=== PATIENT | female | born 1985 | race Caucasian/White ===

== ENCOUNTER 2020-07-10 10:06 | Outpatient (REF) | payer OTHER, SELFPAY | END 2020-07-10 10:07 | disposition home or self-care (01) | LOC: HO.LAB 10:06 | PROVIDERS: Visit Provider Internal Medicine | DX: Z20.828 Contact with and (suspected) exposure to other viral communicable diseases (principal) | CPT/HCPCS: C9803; U0003 ==

== ENCOUNTER 2020-09-18 09:30 | Outpatient (REF) | payer OTHER, SELFPAY | END 2020-09-18 09:31 | disposition home or self-care (01) | LOC: HO.LAB 09:30 | PROVIDERS: Visit Provider Internal Medicine | DX: Z20.822 Contact with and (suspected) exposure to COVID-19 (principal) | CPT/HCPCS: 36415; C9803; U0003; U0005 ==

== ENCOUNTER 2020-09-27 13:05 | Outpatient (REF) | payer OTHER, SELFPAY | END 2020-09-27 13:06 | disposition home or self-care (01) | LOC: HO.LAB 13:05 | PROVIDERS: Visit Provider Internal Medicine | DX: Z20.822 Contact with and (suspected) exposure to COVID-19 (principal) | CPT/HCPCS: 36415; C9803; U0003; U0005 ==

== ENCOUNTER 2020-12-28 01:16 | Emergency (ER) | payer OTHER, SELFPAY ==
[2020-12-28 01:18] VITALS: BP 129/65; PULSE 98; RESP 16; O2SAT 100; BMI 19.3
--- NOTE | 2020-12-28 01:46 | ED_ITS ---
HPI - Back Pain/Injury General Chief Complaint: Back Pain/Injury Stated Complaint: Back pain/Work inj Time Seen by Provider: 12/28/20 01:36 Source: patient Mode of arrival: ambulatory Limitations: no limitations History of Present Illness HPI Narrative: Patient comes emergency room complaining of back pain. 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 Patient started feeling that her lower back was hurting, gradually getting slightly worse. Patient states it is bilateral in the lower back, no spine tenderness. Patient denies hurting herself. Patient took Advil and applied a salonpas patch to her back with no relief. Patient denies urinary/fecal incontinence/retention. Patient states the pain stays local, denies radiation towards the lower extremities. Related Data Previous Rx's Medication Instructions Recorded acetaminophen [Tylenol Arthritis 650 mg PO Q8H PRN #10 tab 12/28/20 Pain] cyclobenzaprine 10 mg PO TID PRN #10 tab 12/28/20 Allergies Allergy/AdvReac Type Severity Reaction Status Date / Time amoxicillin [Amoxicillin] Allergy Unknown RASH Unverified 12/28/20 01:23 Review of Systems Review of Systems: Constitutional : No Weight loss, No Fever, No Chills, No Night Sweats, No Fatigue, No Malaise ENT/Mouth : No Hearing loss, No Ear Pain, No Nasal Congestion, No Sinus Pain, No Hoarseness, No sore throat, No Rhinorrhea, No Swallowing Difficulty Eyes: No Eye Pain, No Swelling, No Redness, No Foreign Body, No Discharge, No Vision Changes Cardiovascular : No Chest Pain, No SOB, No Dyspnea on Exertion, No Orthopnea, No Edema, No Palpitations Respiratory : No Cough, No Sputum, No Wheezing, No Smoke Exposure, No Dyspnea Gastrointestinal : No Nausea, No Vomiting, No Diarrhea, No Constipation, No abdominal Pain, No Hematochezia, No Melena Genitourinary : no irregular bleeding, No Dysuria, No Urinary Frequency, No Hematuria, No Urinary Incontinence, No Urgency, No Flank Pain, No Urinary Flow Changes, No Hesitancy Musculoskeletal : No joint pain, complaining of lower bilateral back pain Skin : No Skin Lesions, No rash Neuro : No Weakness, No Numbness, No Paresthesias, No Loss of Consciousness, No Dizziness, No Headache Psych : No Anxiety/Panic, No Depression, No SI/HI/AH/VH, No Social Issues, Heme/Lymph: No Bruising, No Bleeding,No Lymphadenopathy Endocrine : No Polyuria, No Polydipsia, No Temperature Intolerance [facility] Past Medical History Medical History No known health problems Opiate addiction Social History Social History Advance Directives: No Advance Directives Information Provided: No Patient : No Physical Exam Vital Signs: Vital Signs: Last Vital Signs Pulse 98 12/28/20 01:18 Resp 16 12/28/20 01:18 BP 129/65 12/28/20 01:18 Pulse Ox 100 12/28/20 01:18 Body Mass Index 19.3 Appearance: Alert. Oriented X3. No acute distress. Eyes: Pupils equal, round and reactive to light. ENT: Pharynx normal. Neck: Normal inspection. Neck supple. No lymph nodes noted. No crepitus CVS: Normal heart rate and rhythm. Pulses normal. Normal S1 and S2 Respiratory: No respiratory distress. Breath sounds normal. No Wheezing. No rales Abdomen: Soft and nontender. No rigidity. No distention. Back: Patient is ambulatory at baseline, patient is able to flex and extend the back with normal range of motion. No pain to palpation over the cervical/thoracic/lumbar spine, mild discomfort to palpation over the paraspinal muscles. Negative straight leg raise test bilaterally Skin: Skin warm and dry. Normal skin color. Normal skin turgor. Extremities: No lower extremity edema. No lower extremity edema. No Lacerations. No Rash Neuro: Oriented X 3. No motor deficit. No sensory deficit. Moving all extermities. No slurred speech. Course Course Course Narrative: Patient's pain is likely musculoskeletal. Imaging is not indicated at this time. Patient received 1 dose of IM Toradol. Patient instructed not to use ibuprofen/NSAIDs, only Tylenol for breakthrough pain. Patient was also given a prescription for muscle relaxants. Discharge Plan Discharge Clinical Impression: Strain of lumbar region Qualifiers: Encounter type: initial encounter Qualified Code(s): S39.012A - Strain of muscle, fascia and tendon of lower back, initial encounter Patient Disposition: Home, Self-Care Instructions: Low Back Strain (ED), Lower Back Exercises (ED) Additional Instructions: Please follow-up with your primary care physician tomorrow. If you have any worsening or new symptoms, please return to the emergency room or call 911 Prescriptions: New cyclobenzaprine 10 mg tablet 10 mg PO TID PRN (Reason: muscle spasm) Qty: 10 RF: 0 acetaminophen [Tylenol Arthritis Pain] 650 mg tablet extended release 650 mg PO Q8H PRN (Reason: pain) Qty: 10 RF: 0 Stand Alone Forms: Work/School Release
[2020-12-28] MEDS: Ketorolac Tromethamine 60 MG/2 ML VIAL IM (01:55)
== END 2020-12-28 02:07 | disposition home or self-care (01) ==
PROVIDERS: Emergency Provider Emergency Medicine
DX: S39.012A Strain of muscle, fascia and tendon of lower back, initial encounter (principal); X50.3XXA Overexertion from repetitive movements, initial encounter; X50.1XXA Overexertion from prolonged static or awkward postures, initial encounter; Y93.9 Activity, unspecified; Y92.512 Supermarket, store or market as the place of occurrence of the external cause; Y99.0 Civilian activity done for income or pay; Z79.899 Other long term (current) drug therapy
CPT/HCPCS: 96372; 99283; 99284; J1885

== ENCOUNTER 2021-06-01 06:30 | Emergency (ER) | payer OTHER, SELFPAY ==
[2021-06-01 06:37] VITALS: BP 133/62; PULSE 97; RESP 16; TEMP 36.6; O2SAT 98; BMI 19.3
--- NOTE | 2021-06-01 06:47 | ED.DENTAL ---
HPI - Dental/Oral General Chief complaint: Dental/Oral Stated complaint: possible sinus infection Time Seen by Provider: 06/01/21 06:33 Source: patient Mode of arrival: ambulatory Limitations: no limitations History of Present Illness HPI Narrative: Patient's emergency room complaining of pain in her gums on the maxillary side left side. Patient denies fever chills, no tooth pain. Related Data Home Medications Medication Instructions Recorded Confirmed buprenorphine 8 mg-naloxone 2 mg 1 strip SUBLINGUAL DAILY 06/01/21 06/01/21 sublingual film (Suboxone) Previous Rx's Medication Instructions Recorded benzocaine 20 %-menthol 0.1 %-zinc 1 ea MUCOUS MEMBRANE TID PRN #5.1 g 06/01/21 chloride 0.15 % mucosal gel (Orajel 3X Mouth Sores) Allergies Allergy/AdvReac Type Severity Reaction Status Date / Time amoxicillin [Amoxicillin] Allergy Unknown RASH Verified 06/01/21 06:47 Review of Systems Review of Systems: Constitutional : No Weight loss, No Fever, No Chills, No Night Sweats, No Fatigue, No Malaise ENT/Mouth : No Hearing loss, No Ear Pain, No Nasal Congestion, No Sinus Pain, No Hoarseness, No sore throat, No Rhinorrhea, No Swallowing Difficulty small ulcer in the gum Eyes: No Eye Pain, No Swelling, No Redness, No Foreign Body, No Discharge, No Vision Changes Cardiovascular : No Chest Pain, No SOB, No Dyspnea on Exertion, No Orthopnea, No Edema, No Palpitations Respiratory : No Cough, No Sputum, No Wheezing, No Smoke Exposure, No Dyspnea Gastrointestinal : No Nausea, No Vomiting, No Diarrhea, No Constipation, No abdominal Pain, No Hematochezia, No Melena Genitourinary : no irregular bleeding, No Dysuria, No Urinary Frequency, No Hematuria, No Urinary Incontinence, No Urgency, No Flank Pain, No Urinary Flow Changes, No Hesitancy Musculoskeletal : No joint pain, No Myalgias, No Joint Swelling Skin : No Skin Lesions, No rash Neuro : No Weakness, No Numbness, No Paresthesias, No Loss of Consciousness, No Dizziness, No Headache Psych : No Anxiety/Panic, No Depression, No SI/HI/AH/VH, No Social Issues, Heme/Lymph: No Bruising, No Bleeding,No Lymphadenopathy Endocrine : No Polyuria, No Polydipsia, No Temperature Intolerance PMFSH Past Medical History Medical History No known health problems Opiate addiction Social History Social History Alcohol intake: unknown Patient Tobacco Use Status: Tobacco use Unknown Use of substances other than those prescribed or required for medical reasons: No Advance Directives: No Advance Directives Information Provided: Yes Patient : No Physical Exam Vital Signs: Vital Signs: Last Vital Signs Temp 97.9 F 06/01/21 06:37 Pulse 97 06/01/21 06:37 Resp 16 06/01/21 06:37 BP 133/62 06/01/21 06:37 Pulse Ox 98 06/01/21 06:37 Body Mass Index 19.3 Const: Other: Appearance: Alert. Oriented X3. No acute distress. Eyes: Pupils equal, round and reactive to light. ENT: Pharynx normal. 0.3 x 0.3 cm after this ulcer in the oral mucosa on the left maxillary side Neck: Normal inspection. Neck supple. No lymph nodes noted. No crepitus CVS: Normal heart rate and rhythm. Pulses normal. Normal S1 and S2 Respiratory: No respiratory distress. Breath sounds normal. No Wheezing. No rales Abdomen: Soft and nontender. No rigidity. No distention. good BS x4 Skin: Skin warm and dry. Normal skin color. Normal skin turgor. Extremities: No lower extremity edema. No lower extremity edema. No Lacerations. No Rash Neuro: Oriented X 3. No motor deficit. No sensory deficit. Moving all extermities. No slurred speech. Course Course Course Narrative: I discussed the physical exam with the patient, she does not have any signs of sinusitis, patient does have an aphthous ulcer Discharge Plan Discharge Clinical Impression: Aphthous ulcer Patient Disposition: Home, Self-Care Instructions: Canker Sores (ED) Additional Instructions: Please follow-up with your primary care physician tomorrow. If you have any worsening or new symptoms, please return to the emergency room or call 911 Prescriptions: New Orajel 3X Mouth Sores 20-0.1-0.15 % gel 1 ea mucous membrane TID PRN (Reason: pain) Qty: 5.1 RF: 0 No Action buprenorphine-naloxone [Suboxone] 8-2 mg film 1 strip sublingual DAILY RF: 0
[2021-06-01] MEDS: Lidocaine HCl Viscous 2 % 15 ML SOLUTION MUCOUS MEM (06:52)
== END 2021-06-01 07:05 | disposition home or self-care (01) ==
PROVIDERS: Emergency Provider Emergency Medicine
DX: K12.0 Recurrent oral aphthae (principal)
CPT/HCPCS: 99284

== ENCOUNTER 2021-09-11 22:50 | Emergency (ER) | payer OTHER, SELFPAY ==
--- NOTE | ~2021-09-11 | XR_ITS ---
EXAMINATION: XR CHEST CLINICAL INFORMATION: Fatigue, question pneumonia COMPARISON: 05/26/2017 TECHNIQUE: Frontal view of the chest was obtained. FINDINGS: The lungs are clear with no focal consolidation. No evidence of pneumothorax, pulmonary edema, or pleural effusions. The cardiomediastinal silhouette is unremarkable. No acute osseous findings. XR/XR chest 1V IMPRESSION: No acute cardiopulmonary findings.
[2021-09-11 22:51] VITALS: BP 128/78; PULSE 84; RESP 18; TEMP 36.7; O2SAT 100; BMI 19.3
[2021-09-11 23:03] LABS: MANUAL DIFF FLAG NO
[2021-09-11 23:04] LABS: Basophils Percent Auto 0.2 % (0-2); Eosinophils Absolute Auto 0.1 X10*3/uL (0.0-0.4); Eosinophils Percent Auto 1.5 % (0-4); Hematocrit 35.7 % (37.0-47.0); Hemoglobin 11.9 g/dl (12.0-16.0); Imm Gran Abs Auto 0.01 X10*3/uL (0.00-0.03); Imm Gran Pct Auto 0.2 % (0.0-0.4); Lymphocytes Absolute Auto 1.8 X10*3/uL (1.2-4.9); Lymphocytes Percent Auto 38.1 % (20-40); Mean Corpuscular HGB Conc 33.3 g/dl (31.0-35.0); Mean Corpuscular Hemoglobin 34.9 pg (27.0-33.0); Mean Corpuscular Volume 104.7 fL (80.0-98.0); Mean Platelet Volume 8.6 fL (9.4-12.3); Monocytes Absolute Auto 0.3 X10*3/uL (0.1-1.2); Neutrophils Absolute Auto 2.4 x10*3/uL (2.0-8.3); Platelet Count 239 X10*3/uL (160-400); Red Blood Count 3.41 X10*6/uL (4.20-5.50); Red Cell Distribution Width 12.1 % (11.0-16.0); White Blood Count 4.6 X10*3/uL (4.8-10.8)
[2021-09-11 23:20] LABS: Anion Gap 10 (12-20); Blood Urea Nitrogen 13 mg/dL (9-16); Calcium 9.2 mg/dL (8.4-10.2); Carbon Dioxide 26 mmol/L (22-29); Chloride 108 mmol/L (96-108); Creatinine Clr Calc Pharmacy 69.8; Estimated Glomerular Filt Rate > 60; Glucose Random 100 mg/dL (60-115); Potassium 3.8 mmol/L (3.3-5.1); Sodium 140 mmol/L (135-145)
[2021-09-11 23:20] LABS: COVID-19 Test Negative (Negative)
--- NOTE | 2021-09-12 00:37 | ECG_ITS ---
Test Reason : dizziness Blood Pressure : / mmHG Vent. Rate : 074 BPM Atrial Rate : 074 BPM P-R Int : 130 ms QRS Dur : 082 ms QT Int : 392 ms P-R-T Axes : 075 084 067 degrees QTc Int : 435 ms Normal sinus rhythm Nonspecific ST abnormality Abnormal ECG No previous ECGs available Referred By: Redd Nixon Electronically Signed By:Robby Stewart
[2021-09-12 00:41] LABS: Appearance Urine CLEAR; Color Urine YELLOW; Glucose Urine UA NEG (NEG); Leukocyte Esterase Urine NEG (NEG); Nitrite Urine NEG (NEG); Specific Gravity - Urine >= 1.030 (1.005-1.025); Urine Blood NEG (NEG); Urine Ketones NEG (NEG); Urine Protein NEG (NEG-TRACE)
--- NOTE | 2021-09-12 00:41 | ED_ITS ---
HPI - General Adult General Chief complaint: Dizziness Stated complaint: dizziness, sleeps a lot Time Seen by Provider: 09/12/21 00:12 Source: patient Mode of arrival: ambulatory Limitations: no limitations History of Present Illness HPI narrative: 35 yold female presents to the ED for lethargy and fatigue for one week. patiient states to tired to go to work and she has been sleeping longer than usual. patient denies any sensation of the room spinning, nausea, emesis, fever, chills, abdominal pain, chest pain, shortness of breath, URI symptoms or complaints. patient states she is not sexually active. Patient denies any new diet, drug use, headache, slurred speech, facial droop, paralysis of extremities. patient denies any suicidal/homicidal ideaiton. Related Data Home Medications Medication Instructions Recorded Confirmed buprenorphine 8 mg-naloxone 2 mg 1 strip SUBLINGUAL DAILY 06/01/21 06/01/21 sublingual film (Suboxone) Previous Rx's Medication Instructions Recorded benzocaine 20 %-menthol 0.1 %-zinc 1 ea MUCOUS MEMBRANE TID PRN #5.1 g 06/01/21 chloride 0.15 % mucosal gel (Orajel 3X Mouth Sores) Allergies Allergy/AdvReac Type Severity Reaction Status Date / Time amoxicillin [Amoxicillin] Allergy Unknown RASH Verified 09/11/21 22:51 Review of Systems Review of Systems: fatigue, sleepiness Yes all other systems are reviewed and are negative Neurologic: Reports Abnormal speech present [facility] Past Medical History Medical History No known health problems Opiate addiction Social History Social History Alcohol intake: unknown Patient Tobacco Use Status: Tobacco use Unknown Advance Directives: No Patient : No Physical Exam Vital Signs: Vital Signs: Last Vital Signs Temp 98.1 F 09/11/21 22:51 Pulse 84 09/11/21 22:51 Resp 18 09/11/21 22:51 BP 128/78 09/11/21 22:51 Pulse Ox 100 09/11/21 22:51 BMI result Body Mass Index 19.3 Const: General: cooperative, healthy appearing, comfortable, no acute distress, well developed, alert and awake Orientation/consciousness: patient oriented x3 HENMT: Head: Yes normal to inspection, Yes No palpable skull fracture present, Yes normocephalic, Yes atraumatic and No abrasion Ears: hearing grossly normal bilaterally, external ears normal, TM's normal bilaterally, EAC's normal, mastoids normal and no periauricular adenopathy Throat: Yes posterior oropharynx normal, Yes tonsils normal and Yes uvula midline Eyes: General: appearance normal, both eyes and all related structures Pupils: Equal, round and reactive pupils present Neck: Neck: Yes normal visual inspection, Yes full ROM, Yes no lymphadenopathy, Yes no meningeal signs, Yes trachea midline, Yes supple, No ant erior neck swelling and No tender Chest: Chest palpation & inspection: normal inspection of the chest and normal palpation of entire chest wall Resp: Effort & Inspection: normal respiratory effort and able to speak in complete sentences Auscultation: clear to auscultation bilaterally Cardio: Jugular venous distension: no JVD Heart sounds: S1 normal heart sound present and S2 normal heart sound present GI: Inspection: Yes normal to inspection Palpation (GI): Soft to palpation, not firm, nontender, no guarding and not rigid : General: No CVA tenderness and Yes no CVA tenderness Back/Spine/Pelvis: Back: no CVA tenderness, No CVA tenderness and No back tenderness Skin: General skin exam: no rashes or lesions noted and elasticity normal Neuro: General: patient oriented x3, gait normal, tone normal, moves all extremities, Normal light touch and pain sensation, no meningeal signs, no focal motor deficits, CN's II-XI intact bilaterally and normal sensation to monofilament Cranial nerves: Yes CN's II-XII intact bilaterally, Yes Facial sensation intact/muscles of mastication intact, Yes Intact sense of smell present, Yes Equal, round and reactive pupils present, Yes Normal accommodation reflex present, Yes Bilaterally intact EOM present, Yes Nystagmus not present, Yes Normal facial strength present, Yes Midline tongue present and Yes Normal gag reflex present Cognition (Neuro): normal cognition Speech: Abnormal speech present Gait exam (Neuro): Normal gait present Motor exam (neuro): 5/5 motor strength present throughout Extrem: General: Yes normal to inspection and Yes full ROM Psych: Appearance: grossly normal, well kempt and not disheveled Course Course Course Narrative: Patient had rapid medical screening done. Reevaluation(s) Reevaluation #1: Initial basic labs are normal. Patient states just feel sleepy/fatigue. Negative for any neuro deficit. no head CT indicdated. Patient states no headache or dizziness. Will add magnesium and creating kinase. EKG and troponin ordered. Chest xray ordered to look for pneumonia. Covid swab negative. Urine ordered check for UTI and BERNAL. Will sign out to TEGAN jaimes. Time: 00:49 Medical Decision Making MDM Narrative Medical decision making narrative: Fatigue Lab Data Result diagrams: 09/11/21 22:59 09/11/21 22:59 Labs: Lab Results 09/11/21 09/11/21 09/11/21 Range/Units 22:56 22:59 22:59 WBC 4.6 L (4.8-10.8) X10*3/uL RBC 3.41 L (4.20-5.50) X10*6/uL Hgb 11.9 L (12.0-16.0) g/dl Hct 35.7 L (37.0-47.0) % MCV 104.7 H (80.0-98.0) fL MCH 34.9 H (27.0-33.0) pg MCHC 33.3 (31.0-35.0) g/dl RDW 12.1 (11.0-16.0) % Plt Count 239 (160-400) X10*3/uL MPV 8.6 L (9.4-12.3) fL Immature Gran % (Auto) 0.2 (0.0-0.4) % Neut % (Auto) 53.0 (45-73) % Lymph % (Auto) 38.1 (20-40) % Taylor % (Auto) 7.0 (2-11) % Eos % (Auto) 1.5 (0-4) % Baso % (Auto) 0.2 (0-2) % Lymph # (Auto) 1.8 (1.2-4.9) X10*3/uL Taylor # (Auto) 0.3 (0.1-1.2) X10*3/uL Eos # (Auto) 0.1 (0.0-0.4) X10*3/uL Baso # (Auto) 0.0 (0.0-0.2) X10*3/uL Abs Immat Gran (auto) 0.01 (0.00-0.03) X10*3/uL Absolute Neuts (auto) 2.4 (2.0-8.3) x10*3/uL Absolute Nucleated RBC 0.000 (0.0-0.012) X10*3/uL Nucleated RBC % (auto) 0.0 (0.0-0.2) /100WBC Sodium 140 (135-145) mmol/L Potassium 3.8 (3.3-5.1) mmol/L Chloride 108 (96-108) mmol/L Carbon Dioxide 26 (22-29) mmol/L Anion Gap 10 L (12-20) BUN 13 (9-16) mg/dL Creatinine 0.76 (0.5-1.4) mg/dL Estim Creat Clear Calc 69.8 Estimated GFR > 60 Random Glucose 100 (60-115) mg/dL Calcium 9.2 (8.4-10.2) mg/dL COVID-19 (APRIL) Negative (Negative) COVID-19 Clin Com See Note Discharge Plan Discharge Clinical Impression: Fatigue Patient Disposition: Still a Patient Instructions: Fatigue (ED) Additional Instructions: Your medical evaluation came back normal. Return to the ED for worsening fatigue, chest pain, shortness of breath, slurred speech, facial droop, paralysis of extremities, dizziness described as room spinning, fever, chills, weakness, or any other concerning symptoms. Please follow up with PCP. Prescriptions: No Action buprenorphine-naloxone [Suboxone] 8-2 mg film 1 strip sublingual DAILY 0RF Orajel 3X Mouth Sores 20-0.1-0.15 % gel 1 ea mucous membrane TID PRN (Reason: pain) Qty: 5.1 0RF Rx Instructions: apply a small amount to affected area TID PRN pain Print Language: Mongolian
[2021-09-12 00:44] LABS: UPreg QC Valid YES; Urine Pregnancy NEGATIVE (NEGATIVE)
[2021-09-12 01:10] LABS: Amphetamine Screen Urine Not Detected (Not Detect); Barbiturates, Urine Not Detected (Not Detect); Benzodiazepines Screen Urine Not Detected (Not Detect); Cannabinoid Screen Urine Not Detected (Not Detect); Cocaine Screen Urine Not Detected (Not Detect); Fentanyl, urine Not Detected (Not Detect); Opiate Screen Urine Not Detected (Not Detect); Phencyclidine Screen Urine Not Detected (Not Detect)
[2021-09-12 01:28] VITALS: BP 94/65; PULSE 73
[2021-09-12 01:29] VITALS: BP 113/66; PULSE 80
[2021-09-12 01:31] VITALS: BP 113/75; PULSE 82
[2021-09-12 01:36] LABS: Troponin-I High Sensitivity < 3.5 ng/L (<3.5-17.0)
== END 2021-09-12 01:54 | disposition home or self-care (01) ==
PROVIDERS: Physician Assistant; Emergency Provider Internal Medicine
DX: R53.83 Other fatigue (principal); Z20.822 Contact with and (suspected) exposure to COVID-19; F11.20 Opioid dependence, uncomplicated
CPT/HCPCS: 36415; 71045; 80048; 80307; 81003; 81025; 82550; 83735; 84484; 85025; 87635; 93005; 99284

== ENCOUNTER 2021-12-08 09:21 | Emergency (ER) | payer OTHER, SELFPAY ==
[2021-12-08 09:29] VITALS: BP 115/75; PULSE 93; RESP 16; TEMP 36.7; O2SAT 100; BMI 19.3
--- NOTE | 2021-12-08 09:42 | ED.WOUNDLAC ---
HPI - Wound/Laceration General Chief Complaint: Wound/Laceration Stated Complaint: laceration on R hand Time Seen by Provider: 12/08/21 09:42 Source: patient Mode of arrival: ambulatory Limitations: no limitations History of Present Illness HPI narrative: Patient presents to the emergency department for a laceration to her right thumb sustained from metal kitchen tongs, while washing dishes. She wrecked her hand in a towel and presented to the emergency department. Denies any pain, numbness, tingling, or loss of range of motion to the thumb. Unaware of last tetanus vaccine Related Data Home Medications Medication Instructions Recorded Confirmed buprenorphine 8 mg-naloxone 2 mg 1 strip SUBLINGUAL DAILY 06/01/21 06/01/21 sublingual film (Suboxone) Previous Rx's Medication Instructions Recorded benzocaine 20 %-menthol 0.1 %-zinc 1 ea MUCOUS MEMBRANE TID PRN #5.1 g 06/01/21 chloride 0.15 % mucosal gel (Orajel 3X Mouth Sores) Allergies Allergy/AdvReac Type Severity Reaction Status Date / Time amoxicillin [Amoxicillin] Allergy Unknown RASH Verified 09/11/21 22:51 Review of Systems Review of Systems: Skin: Positive laceration Yes all other systems are reviewed and are negative PMFSH Past Medical History Attestation statement: The following information was validated with the patient. Source: old records reviewed Medical History No known health problems Opiate addiction Social History Social History Alcohol intake: unknown Patient Tobacco Use Status: Tobacco use Unknown Advance Directives: No Advance Directives Information Provided: No Patient : No Physical Exam Vital Signs: Vital Signs: Last Vital Signs Temp 98.1 F 12/08/21 09:29 Pulse 93 12/08/21 09:29 Resp 16 12/08/21 09:29 BP 115/75 12/08/21 09:29 Pulse Ox 100 12/08/21 09:29 BMI result Body Mass Index 19.3 Vital signs have been reviewed as normal and appeared to be correct. Blood pressure normal.? Heart rate normal.? Respiration rate normal. Temperature normal.? Oxygen saturation normal. Appearance: Alert.?Oriented to person, place and time. No acute distress.?Normal affect. Eyes: Pupils equal, round and reactive to light.? ENT: Pharynx normal.?? Neck: Normal inspection.? Neck supple.?? CVS: Heart sounds normal. Normal heart rate and rhythm.? Pulses normal.?? Respiratory: No respiratory distress.? Lung sounds clear to auscultation bilaterally?? Abdomen: Soft and non-tender. Skin: 2 cm superficial laceration along the ulnar aspect of the right thumb, no active bleeding. Skin warm and dry.? Normal skin color.? ?? Extremities: Full AROM to right hand and digits. Neurovascularly intact. Neuro: Moves all extremities spontaneously. Sensation intact bilaterally. No motor deficits. Ambulates with normal steady gait. Course Course Course Narrative: Patient is a 36-year-old female presenting for evaluation of a laceration to her thumb. Physical exam not consistent with fracture, dislocation, or tendon involvement. Laceration cleansed with normal saline, edges well approximated, wound closure with Exofin topical skin adhesive, tetanus updated. Advised avoidance of touching the adhesive for 24 hours, keeping the area dry for 5 days. Discussed reasons to return back to the emergency department. All questions were answered and she was discharged home in stable condition. Discharge Plan Discharge Clinical Impression: Laceration Patient Disposition: Home, Self-Care Instructions: Finger Laceration (ED) Additional Instructions: Avoid touching the glue for 24 hours. Keep the area dry for 5 days. Return to the emergency department with any new symptoms or concerns. If you developed redness, swelling, drainage, inability to move your thumb, numbness, tingling please return back to the emergency department. Prescriptions: No Action buprenorphine-naloxone [Suboxone] 8-2 mg film 1 strip sublingual DAILY 0RF Orajel 3X Mouth Sores 20-0.1-0.15 % gel 1 ea mucous membrane TID PRN (Reason: pain) Qty: 5.1 0RF Rx Instructions: apply a small amount to affected area TID PRN pain Stand Alone Forms: Work/School Release Interventions: ED Discharge Assessment Last Done: 12/08/21 10:00 Discharge Date/Time: 12/08/21 10:00
[2021-12-08] MEDS: Diphth,Pertus(ACell),Tet Adult 0.5 ML SYRINGE IM (09:49)
== END 2021-12-08 10:00 | disposition home or self-care (01) ==
PROVIDERS: Emergency Provider Emergency Medicine Emergency Medical Services
DX: S61.011A Laceration without foreign body of right thumb without damage to nail, initial encounter (principal); W26.9XXA Contact with unspecified sharp object(s), initial encounter; Y93.G1 Activity, food preparation and clean up; Y92.9 Unspecified place or not applicable; Y99.9 Unspecified external cause status
CPT/HCPCS: 12001; 90471; 90715; 99283; 99284

== ENCOUNTER 2022-12-30 03:48 | Emergency (ER) | payer OTHER, SELFPAY ==
[2022-12-30 04:06] VITALS: BP 115/79; PULSE 83; RESP 16; TEMP 36.8; O2SAT 94
[2022-12-30 04:16] VITALS: BP 115/79; PULSE 83; RESP 16; TEMP 36.8; O2SAT 94; BMI 20.2
--- NOTE | 2022-12-30 04:24 | ED_ITS ---
HPI - Female Genitourinary General Chief complaint: Urogenital-Female Stated complaint: UTI Time Seen by Provider: 12/30/22 04:11 Source: patient Mode of arrival: ambulatory History of Present Illness HPI Narrative: 37-year-old female who states that she has been very busy in his been finding a urinary tract infection for 2 months but taking [id number] cranberry pills. Patient states that she is having significant suprapubic pain but denies any fever, chills, nausea Related Data Home Medications Medication Instructions Recorded Confirmed buprenorphine 8 mg-naloxone 2 mg 1 strip sublingual DAILY 06/01/21 06/01/21 sublingual film (Suboxone) Previous Rx's Medication Instructions Recorded benzocaine 20 %-menthol 0.1 %-zinc 1 ea mucous membrane TID PRN pain 06/01/21 chloride 0.15 % mucosal gel #5.1 grams (Orajel 3X Mouth Sores) nitrofurantoin 100 mg PO Q12H 5 days #10 caps 12/30/22 monohydrate/macrocrystals 100 mg capsule (Macrobid) phenazopyridine 200 mg tablet 200 mg PO TID PRN pain 6 doses #6 12/30/22 (Pyridium) tabs Allergies Allergy/AdvReac Type Severity Reaction Status Date / Time amoxicillin [Amoxicillin] Allergy Unknown RASH Verified 09/11/21 22:51 Review of Systems Review of Systems: Pertinent positives and negatives as stated in HPI [facility] Past Medical History Source: nursing notes reviewed Medical History No known health problems Opiate addiction Social History Social History Alcohol intake: unknown Patient Tobacco Use Status: Tobacco use Unknown Advance Directives: No Advance Directives Information Provided: No Physical Exam Vital Signs: Vital Signs: Last Vital Signs Temp 98.2 F 12/30/22 04:16 Pulse 83 12/30/22 04:16 Resp 16 12/30/22 04:16 BP 115/79 12/30/22 04:16 Pulse Ox 94 12/30/22 04:16 O2 Del Method Room Air 12/30/22 04:16 BMI result Body Mass Index 20.2 VITAL SIGNS: Reviewed. GENERAL: Well developed, well nourished, in no acute distress. HEAD: Normocephalic/atraumatic EYES: PERRLA, EOMI EARS: Ext canals without abnormality NOSE: Nares patent bilateral OROPHARYNX: no oral lesions noted, posterior pharynx clear NECK: Supple, no adenopathy LUNGS: Normal breath sounds. No adventitious sounds or accessory muscle use. SpO2<94> CARDIOVASCULAR: Regular rate and rhythm without noted murmurs ABDOMEN: Soft, non-tender, non-distended with bowel sounds. MUSCULOSKELETAL: No tenderness, deformities, or effusions noted on gross inspection. EXTREMITIES: No cyanosis, clubbing or edema. SKIN: Inspection of the skin reveals no rashes NEUROLOGIC: Alert and oriented x 4. Strength and sensation to light touch were grossly intact x 4. Medical Decision Making Medical Decision Making MDM Narrative: 37-year-old female with history and clinical presentation consistent with UTI, review investigations corroborates this with positive nitrites, will receive peridium and Macrobid prior to discharge. Differential Diagnosis Please see discussion above Lab Data Labs: Lab Results 12/30/22 12/30/22 Range/Units 04:22 04:22 Urine Color [place] A Urine Appearance Cloudy Urine pH 5.0 (5.0-9.0) Ur Specific [place] >= 1.030 H (1.005-1.025) Urine Protein Trace (Neg-Trace) mg/dL Urine Glucose (UA) Negative (Negative) mg/dL Urine Ketones Negative (Negative) mg/dL Urine Blood Negative (Negative) Urine Nitrite Positive H (Negative) Ur Leukocyte Esterase Moderate (2+) H (Negative) Urine Test NEGATIVE (NEGATIVE) Discharge Plan Discharge Clinical Impression: Urinary tract infection Patient Disposition: Home, Self-Care Instructions: Urinary Tract Infection in Women (DC) Additional Instructions: 1. Please complete the entire course of antibiotics as ordered. Return to the ER for any worsening symptoms. Prescriptions: New nitrofurantoin monohyd/m-cryst [Macrobid] 100 mg capsule 100 mg PO Q12H 5 Days Qty: 10 0RF Rx Instructions: must administer with a meal/food phenazopyridine [Pyridium] 200 mg tablet 200 mg PO TID PRN (Reason: pain) Qty: 6 0RF No Action buprenorphine-naloxone [Suboxone] 8-2 mg film 1 strip sublingual DAILY Orajel 3X Mouth Sores 20-0.1-0.15 % gel 1 ea mucous membrane TID PRN (Reason: pain) Qty: 5.1 0RF Rx Instructions: apply a small amount to affected area TID PRN pain
[2022-12-30 04:29] LABS: Appearance Urine Cloudy; Color Urine Orange; Glucose Urine UA Negative (Negative); Leukocyte Esterase Urine Moderate (2+) (Negative); Nitrite Urine Positive (Negative); Specific Gravity - Urine >= 1.030 (1.005-1.025); UMIC TRIGGER UACC YES; Urine Blood Negative (Negative); Urine Ketones Negative (Negative); Urine Protein Trace mg/dL (Neg-Trace)
[2022-12-30 04:30] LABS: UPreg QC Valid YES; Urine Pregnancy NEGATIVE (NEGATIVE)
[2022-12-30 04:33] LABS: Bacteria Urine 1+ (None Seen); Hyaline Casts Urine 0-2 /LPF (0-2); RBC Urine 0-2 /HPF (0-2); UACC Culture Trigger YES
[2022-12-30] MEDS: Nitrofurantoin Monohyd/M-Cryst 100 MG CAPSULE PO (04:40)
[2022-12-30] MEDS: Phenazopyridine HCL 200 MG TABLET PO (04:40)
--- NOTE | 2022-12-30 04:42 | PC.NURSE ---
this rn assumed care direct bed of pt @ [id number]. pt calm and coopertive. pt able to provided urine sample. sample sent down to lab.
--- NOTE | 2022-12-30 04:43 | PC.NURSE ---
pt medicated according to oct. pt reporting 4/10 pain at this time
--- NOTE | 2022-12-30 04:51 | PC.NURSE ---
pt ambulatory at discharge. skin pwd. pt provided with discharge packet. pt verbalized understanding of discharge plan
== END 2022-12-30 04:52 | disposition home or self-care (01) ==
PROVIDERS: Emergency Provider Student in an Organized Health Care Education/Training Program
DX: N39.0 Urinary tract infection, site not specified (principal); Z79.899 Other long term (current) drug therapy
CPT/HCPCS: 81001; 81025; 87086; 87088; 87186; 99283; 99284

== ENCOUNTER 2023-04-01 10:30 | Emergency (ER) | payer OTHER, SELFPAY ==
--- NOTE | ~2023-04-01 | XR_ITS ---
EXAMINATION: XR WRIST AND HAND, RIGHT CLINICAL INFORMATION: Fall. Pain. COMPARISON: None available. TECHNIQUE: PA, oblique, lateral, and scaphoid views of the right hand and wrist. FINDINGS: No acute fracture or dislocation. Normal carpal alignment. No joint space narrowing marginal osteophytes. No osseous erosion. No abnormal soft tissue calcification. XR/XR hand wrist RT IMPRESSION: Unremarkable examination.
[2023-04-01 10:40] VITALS: BP 106/66; PULSE 88; RESP 16; TEMP 37.4; O2SAT 98; BMI 23.9
--- NOTE | 2023-04-01 13:05 | ED_ITS ---
HPI - General Adult General Chief complaint: Extremity Injury, Lower Stated complaint: R wrist inj Time Seen by Provider: 04/01/23 11:43 Source: patient, family and RN notes reviewed Mode of arrival: ambulatory Limitations: no limitations History of Present Illness HPI narrative: This is a 37-year-old female, with no known past medical history, presenting to the emergency department with complaints of right wrist pain x 2 weeks. Patient reports that while she was decorating for Halloween, she was standing on a metal stool when suddenly the stool wobbled causing her to fall backwards landing with her arms stretched backwards behind her. She immediately had pain in her right wrist. She has been icing the area as well as applying an [place] wrap and taking ibuprofen and Tylenol as needed for pain was provided her with some relief. She denies any numbness or tingling into her fingers she is right handed. Denies any fevers or chills. No other complaints or concerns at this time. MD complaint: Right wrist pain Onset (ago): week(s) Location: upper extremity Radiation: non-radiation Severity: mild Quality: aching Pain Consistency: constant Relieving factors: immobilization Exacerbating factors: movement Associated symptoms: denies other symptoms Treatments prior to arrival: NSAID and cold therapy Related Data Home Medications Medication Instructions Recorded Confirmed buprenorphine 8 mg-naloxone 2 mg 1 strip sublingual DAILY 06/01/21 06/01/21 sublingual film (Suboxone) Previous Rx's Medication Instructions Recorded benzocaine 20 %-menthol 0.1 %-zinc 1 ea mucous membrane TID PRN pain 06/01/21 chloride 0.15 % mucosal gel #5.1 grams (Orajel 3X Mouth Sores) nitrofurantoin 100 mg PO Q12H 5 days #10 caps 12/30/22 monohydrate/macrocrystals 100 mg capsule (Macrobid) phenazopyridine 200 mg tablet 200 mg PO TID PRN pain 6 doses #6 12/30/22 (Pyridium) tabs Allergies Allergy/AdvReac Type Severity Reaction Status Date / Time amoxicillin [Amoxicillin] Allergy Unknown RASH Verified 09/11/21 22:51 Review of Systems Review of Systems: Yes all other systems are reviewed and are negative Constitutional: Constitutional: Reports as per HPI [facility] Past Medical History Medical History No known health problems Opiate addiction Social History Social History Alcohol intake: unknown Patient Tobacco Use Status: Tobacco use Unknown Advance Directives: No Advance Directives Information Provided: Yes Physical Exam ED Vital Signs: Vital Signs - 24 hr 04/01/23 10:40 Temperature 99.3 F Pulse Rate 88 Respiratory Rate 16 Blood Pressure 106/66 Pulse Oximetry 98 Oxygen Delivery Method Room Air BMI result Body Mass Index 23.9 Const General: cooperative, comfortable and no acute distress Orientation/consciousness: patient oriented x3 Limitations: no limitations HENMT Head: Yes normal to inspection, Yes normocephalic and Yes atraumatic Ears: hearing grossly normal bilaterally General nose exam: Normal external nose present Face and sinus: Yes normal facial exam Mouth: Normal oral and palatal mucosa present, oropharynx normal and moist mucous membranes Throat: Yes posterior oropharynx normal Eyes General: appearance normal, both eyes and all related structures Eyelids: Yes eyelids normal Conjunctivae: conjunctivae normal Sclerae: sclerae normal Pupils: Equal, round and reactive pupils present EOM: EOMs intact bilaterally Neck Neck: Yes normal visual inspection, Yes full ROM and Yes no lymphadenopathy Lymphatic: no lymphadenopathy noted Chest Chest palpation & inspection: normal inspection of the chest Resp Effort & Inspection: normal respiratory effort and able to speak in complete sentences Auscultation: clear to auscultation bilaterally, no crackles, no rales, no rhonchi and no wheezes Cardio Rate: regular rate Rhythm: regular rhythm Heart sounds: S1 normal heart sound present and S2 normal heart sound present GI Inspection: Yes normal to inspection Skin General skin exam: no rashes or lesions noted Trauma: no lacerations or abrasions Wounds: no wounds Neuro General: patient oriented x3 and moves all extremities Cranial nerves: Yes Equal, round and reactive pupils present Extrem Other: Right wrist with no obvious deformity or swelling. Able to make a fist without difficulty. Range of motion is full and intact. Patient has tenderness palpation along the distal radius. No snuffbox tenderness noted. No ecchymosis, or erythema noted. Strong radial pulse General: Yes normal to inspection Right upper extremity: normal to inspection Left upper extremity: normal to inspection Right lower extremity: normal to inspection Left lower extremity: normal to inspection Medical Decision Making Medical Decision Making MDM Narrative: This is a 37-year-old female presenting to the emergency department with complaints of right wrist pain x2 weeks. She reports mechanical fall landing onto her outstretched right hand. On arrival, all vital signs within normal limits. Patient has tenderness to palpation along the right distal radius. Differential diagnoses include fracture, sprain, strain, contusion Able to make a fist. Hand is nontender. Patient has no soft box tenderness. X-ray was obtained of the hand and wrist which had no acute fracture noted. Discussed results with patient and boyfriend at bedside. Advised to rest, ice, use wrist splint applied in emergency room, and elevate right wrist as needed. Encouraged to take ibuprofen or Tylenol as needed for pain. Given patient is right handed and reports worsening pain with using her hands, will refer to orthopedics for further evaluation and treatment. Patient understands and agrees with plan. Patient stable for discharge. Differential Diagnosis Differential Diagnoses: The differential diagnosis associated with the presentation includes See above Radiology Impression Discussion of test interpretation with radiology: I have reviewed the radiologist's reading. Radiologist Impression: EXAMINATION: XR WRIST AND HAND, RIGHT CLINICAL INFORMATION: Fall. Pain.? COMPARISON: None available.? TECHNIQUE: PA, oblique, lateral, and scaphoid views of the right hand and wrist. FINDINGS: No acute fracture or dislocation. Normal carpal alignment. No joint space narrowing marginal osteophytes. No osseous erosion. No abnormal soft tissue calcification. XR/XR hand wrist RT IMPRESSION: Unremarkable examination. Dictated By: Jorgito Figueroa MD Discharge Plan Discharge Clinical Impression: Wrist pain, right Patient Disposition: Home, Self-Care Instructions: Wrist Injury (ED) Additional Instructions: Your x-rays today did not show any broken bones. Please use splint for comfort. You may rest, ice, use wrist splint and elevate your right wrist for pain relief. Gentle range of motion and massage can also help. You may take ibuprofen and Tylenol as needed for your pain. Please follow-up with Orthopedics, call today to make an appointment. If any new or worsening symptoms occur including worsening pain, unable to move hand or wrist, or weakness, please return for re-evaluation. Prescriptions: No Action buprenorphine-naloxone [Suboxone] 8-2 mg film 1 strip sublingual DAILY Orajel 3X Mouth Sores 20-0.1-0.15 % gel 1 ea mucous membrane TID PRN (Reason: pain) Qty: 5.1 0RF Rx Instructions: apply a small amount to affected area TID PRN pain nitrofurantoin monohyd/m-cryst [Macrobid] 100 mg capsule 100 mg PO Q12H 5 Days Qty: 10 0RF Rx Instructions: must administer with a meal/food phenazopyridine [Pyridium] 200 mg tablet 200 mg PO TID PRN (Reason: pain) Qty: 6 0RF Referrals: [facility] [place] [facility] [Provider Group] Stand Alone Forms: Work/School Release
[2023-04-01 13:36] VITALS: BP 117/68; PULSE 86; RESP 18; O2SAT 98
== END 2023-04-01 13:43 | disposition home or self-care (01) ==
PROVIDERS: Emergency Provider Student in an Organized Health Care Education/Training Program
DX: M25.531 Pain in right wrist (principal); M79.641 Pain in right hand
CPT/HCPCS: 73110; 73130; 99284

== ENCOUNTER 2024-08-08 07:20 | Emergency (ER) | payer OTHER, SELFPAY ==
[2024-08-08 07:35] VITALS: BP 129/69; PULSE 90; RESP 16; TEMP 36.9; O2SAT 98; BMI 20.6
[2024-08-08 09:58] LABS: IDNOW Serial# 58CA691E; Strep A Nucleic Acid Negative (Negative)
[2024-08-08] MEDS: Acetaminophen 325 MG TABLET 650 MG PO (10:08)
--- NOTE | 2024-08-08 10:08 | ED_ITS ---
HPI - URI/Sore Throat General Chief Complaint: Upper Respiratory Symptoms Stated Complaint: sinus infection Time Seen by Provider: 08/08/24 09:06 Source: patient, RN notes reviewed and old records reviewed Mode of arrival: ambulatory History of Present Illness ED Provider: Mahi Castillo PA-C [facility] Narrative: 38-year-old female no significant past medical history presenting to the ED complaining of rhinorrhea, nasal congestion, and sinus pressure/headache x1 week. Reports pain worse with bending over. Denies ear pain, sore throat, fever/chills, cough, CP/SOB, sick contacts, travel Related Data Home Medications ?Medication ?Instructions ?Recorded ?Confirmed buprenorphine 8 mg-naloxone 2 mg 1 strip sublingual DAILY 06/01/21 06/01/21 sublingual film (Suboxone) Previous Rx's ?Medication ?Instructions ?Recorded benzocaine 20 %-menthol 0.1 %-zinc 1 ea mucous membrane TID PRN pain 06/01/21 chloride 0.15 % mucosal gel #5.1 grams (Orajel 3X Mouth Sores) nitrofurantoin 100 mg PO Q12H 5 days #10 caps 12/30/22 monohydrate/macrocrystals 100 mg capsule (Macrobid) phenazopyridine 200 mg tablet 200 mg PO TID PRN pain 6 doses #6 12/30/22 (Pyridium) tabs Allergies Allergy/AdvReac Type Severity Reaction Status Date / Time amoxicillin [Amoxicillin] Allergy Unknown RASH Verified 08/08/24 07:36 Review of Systems Review of Systems: Yes all other systems are reviewed and are negative Constitutional: Constitutional: Reports as per [facility] Past Medical History Attestation statement: The following information was validated with the patient. Source: old records reviewed Medical History Opiate addiction No known health problems Social History Social History Alcohol intake: unknown Patient Tobacco Use Status: Tobacco use Unknown Advance Directives: No Advance Directives Information Provided: No Physical Exam Vital Signs: Vital Signs: Last Vital Signs Temp 98.5 F 08/08/24 07:35 Pulse 90 08/08/24 07:35 Resp 16 08/08/24 07:35 BP 129/69 08/08/24 07:35 Pulse Ox 98 08/08/24 07:35 O2 Del Method Room Air 08/08/24 07:35 BMI result Body Mass Index 20.6 Const: General: cooperative, healthy appearing and no acute distress Orientation/consciousness: patient oriented x3 Limitations: no limitations HEENT: Head: Yes normal to inspection and Yes atraumatic Ears: hearing grossly normal bilaterally, external ears normal, TM's normal bilaterally and mastoids normal General nose exam: Normal external nose present Face and sinus: Yes normal facial exam Mouth: Normal oral and palatal mucosa present and no drooling Throat: Yes posterior oropharynx normal, Yes tonsils normal, Yes uvula midline, No peritonsillar mass, No uvula laterally displaced and No uvular edema Eyes: General: appearance normal, both eyes and all related structures EOM: EOMs intact bilaterally Neck: Neck: Yes normal visual inspection and Yes no meningeal signs Resp: Effort & Inspection: normal respiratory effort, no respiratory distress and no stridor Auscultation: clear to auscultation bilaterally, no crackles and no wheezes Cardio: Rate: regular rate Heart sounds: S1 normal heart sound present and S2 normal heart sound present Skin: Rashes: no rashes Wounds: no wounds Neuro: General: patient oriented x3, tone normal and no meningeal signs Cranial nerves: Yes CN's II-XII intact bilaterally Gait exam (Neuro): Normal gait present Extrem: General: Yes normal to inspection Course Course Course Narrative: -rapid strep negative -RSV positive Results discussed with patient including worrisome signs and symptoms and strict return precautions, and when to return to the emergency department. They verbalized understanding and feel safe for discharge at this time. Medications Administered Discontinued Medications Generic Name Dose Route Start Last Admin Trade Name Freq PRN Reason Stop Dose Admin Acetaminophen 650 mg 08/08/24 09:34 08/08/24 10:08 Acetaminophen 325 Mg Tablet PO 08/08/24 09:35 650 mg ONCE ONE Administration Medical Decision Making Medical Decision Making MDM Narrative: 38-year-old female no significant past medical history presenting to the ED complaining of rhinorrhea, nasal congestion, and sinus pressure/headache x1 week. On exam vital signs stable, NAD, nontoxic appearing, physical exam as noted above. Concern for sinusitis vs viral illness. No evidence of acute otitis media/externa, low suspicion for mastoiditis, no evidence of [employer]/retropharyngeal abscess. Low suspicion for meningitis/encephalitis Plan: Viral testing, p.o. antibiotics Please refer to course for remaining clinical decision making, interpretation of labs/imaging results, and discussions with consultants and/or family members. Differential Diagnosis Differential Diagnoses: The differential diagnosis associated with the presentation includes As above Lab Data MDM Lab Attestation statement: I reviewed the patient's lab results. Labs: Lab Results 08/08/24 Range/Units 09:45 Influenza Type A (PCR) NEGATIVE (Negative) Influenza Type B (PCR) NEGATIVE (Negative) RSV RNA Qual (PCR) POSITIVE A (Negative) SARS-CoV-2 RNA (RT-PCR) NEGATIVE (Negative) S. pyogenes GrpA HARJIT Negative (Negative) Independent Historian Clinical information obtained from an independent historian. History obtained from or confirmed by: Other External Record Review External record reviewed: Inpatient record, Office record, Outpatient record, Prior outpatient labs, Prior outpatient radiology, Primary care record and Outside ED record Tests considered The following testing was considered but not selected: As above Prescription Management I considered prescription management with: Pain Medication and Antibiotic Chronic Conditions Patient?s care impacted by: Other Social Determinants Patient?s care significantly limited by Social Determinants of Health including: Other Social Determinant of Health Discharge Plan Discharge Clinical Impression: Sinusitis Patient Disposition: Home, Self-Care Prescriptions: No Action buprenorphine-naloxone [Suboxone] 8-2 mg film 1 strip sublingual DAILY Orajel 3X Mouth Sores 20-0.1-0.15 % gel 1 ea mucous membrane TID PRN (Reason: pain) Qty: 5.1 0RF Rx Instructions: apply a small amount to affected area TID PRN pain nitrofurantoin monohyd/m-cryst [Macrobid] 100 mg capsule 100 mg PO Q12H 5 Days Qty: 10 0RF Rx Instructions: must administer with a meal/food phenazopyridine [Pyridium] 200 mg tablet 200 mg PO TID PRN (Reason: pain) Qty: 6 0RF Referrals: Physician,None [Primary Care Provider] - Print Language: Guyanese
[2024-08-08 10:32] LABS: Influenza A PCR NEGATIVE (Negative); Influenza B PCR NEGATIVE (Negative); Resp Syncy Virus RNA Qual PCR POSITIVE (Negative); SARS COV2 PCR INHOUSE NEGATIVE (Negative)
[2024-08-08 11:11] VITALS: BP 129/69; PULSE 90; RESP 16; TEMP 36.9; O2SAT 98
== END 2024-08-08 11:12 | disposition home or self-care (01) ==
PROVIDERS: Physician Assistant; Emergency Provider Emergency Medicine
DX: J32.9 Chronic sinusitis, unspecified (principal); J06.9 Acute upper respiratory infection, unspecified; J34.89 Other specified disorders of nose and nasal sinuses; R51.9 Headache, unspecified; R09.81 Nasal congestion; Z79.899 Other long term (current) drug therapy; Z03.818 Encounter for observation for suspected exposure to other biological agents ruled out
CPT/HCPCS: 0241U; 87651; 99283

== ENCOUNTER 2024-09-30 23:55 | Emergency (ER) | payer OTHER, SELFPAY ==
[2024-09-30 23:58] VITALS: BP 125/78; PULSE 93; RESP 16; TEMP 36.9; O2SAT 92; BMI 19.6
[2024-10-01 00:34] LABS: MANUAL DIFF FLAG NO
[2024-10-01 00:38] LABS: Basophils Percent Auto 0.3 % (0-2); Eosinophils Absolute Auto 0.1 X10*3/uL (0.0-0.4); Eosinophils Percent Auto 0.7 % (0-4); Hematocrit 32.8 % (37.0-47.0); Hemoglobin 10.9 g/dl (12.0-16.0); Imm Gran Abs Auto 0.14 X10*3/uL (0.00-0.03); Imm Gran Pct Auto 1.2 % (0.0-0.4); Lymphocytes Absolute Auto 1.9 X10*3/uL (1.2-4.9); Lymphocytes Percent Auto 16.1 % (20-40); Mean Corpuscular HGB Conc 33.2 g/dl (31.0-35.0); Mean Corpuscular Hemoglobin 34.6 pg (27.0-33.0); Mean Corpuscular Volume 104.1 fL (80.0-98.0); Mean Platelet Volume 9.2 fL (9.4-12.3); Monocytes Absolute Auto 0.6 X10*3/uL (0.1-1.2); Monocytes Percent Auto 5.5 % (2-11); Neutrophils Absolute Auto 8.8 x10*3/uL (2.0-8.3); Neutrophils Percent Auto 76.2 % (45-73); Platelet Count 287 X10*3/uL (160-400); Red Blood Count 3.15 X10*6/uL (4.20-5.50); Red Cell Distribution Width 13.7 % (11.0-16.0); White Blood Count 11.5 X10*3/uL (4.8-10.8)
[2024-10-01 00:40] LABS: Appearance Urine Hazy; Color Urine RED; Glucose Urine UA 250 mg/dL (Negative); Leukocyte Esterase Urine Small (1+) (Negative); Nitrite Urine Positive (Negative); PH 6.5 (5.0-9.0); UMIC TRIGGER UACC YES; UPreg QC Valid YES; Urine Blood Small (1+) (Negative); Urine Ketones Trace mg/dL (Negative); Urine Pregnancy NEGATIVE (NEGATIVE); Urine Protein 300 (3+) mg/dL (Neg-Trace)
[2024-10-01 00:47] LABS: Anion Gap 13 (12-20); Blood Urea Nitrogen 24 mg/dL (9-16); Calcium 8.7 mg/dL (8.4-10.2); Carbon Dioxide 18 mmol/L (22-29); Chloride 113 mmol/L (96-108); Creatinine Clr Calc Pharmacy 48.1; Estimated Glomerular Filt Rate 57; Glucose Random 91 mg/dL (60-115); Potassium 4.3 mmol/L (3.3-5.1); Sodium 140 mmol/L (135-145)
[2024-10-01 00:54] LABS: Bacteria Urine 4+ (None Seen); Hyaline Casts Urine 0-2 /LPF (0-2); UACC Culture Trigger YES; WBC Clumps Urine None seen
[2024-10-01] MEDS: cephALEXin 500 MG CAPSULE PO (01:35)
[2024-10-01] MEDS: Phenazopyridine HCL 200 MG TABLET PO (01:35)
--- NOTE | 2024-10-01 02:09 | ED.FEMALEGU ---
HPI - Female Genitourinary General Chief complaint: Urogenital-Female Stated complaint: UTI Time Seen by Provider: 10/01/24 01:02 Source: patient Limitations: no limitations History of Present Illness ED Provider: Magi Thomas PA-C HPI Narrative: 38-year-old female presents with dysuria x2 weeks. Denies abdominal pain, nausea, vomiting, fever or back pain. No vaginal discharge. No risk for STD. Related Data Home Medications ?Medication ?Instructions ?Recorded ?Confirmed buprenorphine 8 mg-naloxone 2 mg 1 strip sublingual DAILY 06/01/21 06/01/21 sublingual film (Suboxone) Previous Rx's ?Medication ?Instructions ?Recorded benzocaine 20 %-menthol 0.1 %-zinc 1 ea mucous membrane TID PRN pain 06/01/21 chloride 0.15 % mucosal gel #5.1 grams (Orajel 3X Mouth Sores) nitrofurantoin 100 mg PO Q12H 5 days #10 caps 12/30/22 monohydrate/macrocrystals 100 mg capsule (Macrobid) phenazopyridine 200 mg tablet 200 mg PO TID PRN pain 6 doses #6 12/30/22 (Pyridium) tabs acetaminophen 500 mg tablet 500 mg PO Q6H PRN fever or pain 08/08/24 (Tylenol Extra Strength) #14 tabs cefdinir 300 mg capsule 300 mg PO BID 5 days #10 caps 08/08/24 ibuprofen 400 mg tablet 400 mg PO Q6H PRN fever or pain 08/08/24 #14 tabs cephalexin 500 mg capsule 500 mg PO BID #13 caps 10/01/24 fluconazole 200 mg tablet 200 mg PO DAILY #1 tab 10/01/24 (Diflucan) phenazopyridine 200 mg tablet 200 mg PO TID PRN pain #10 tabs 10/01/24 (Pyridium) Allergies Allergy/AdvReac Type Severity Reaction Status Date / Time amoxicillin [Amoxicillin] Allergy Unknown RASH Verified 10/01/24 00:02 Review of Systems Review of Systems: Yes all other systems are reviewed and are negative Constitutional: Constitutional: Denies fatigue and Denies fever(s) Cardiovascular: Cardiovascular: Denies chest pain Gastrointestinal: Gastrointestinal: Denies abdominal pain, Denies nausea and Denies vomiting Genitourinary: Genitourinary: Reports dysuria, Denies pelvic pain and Denies vaginal discharge Musculoskeletal: Musculoskeletal: Denies back pain Endocrine: Endocrine: Denies fatigue PMF Past Medical History Attestation statement: The following information was validated with the patient. Medical History Opiate addiction No known health problems Social History Social History Alcohol intake: unknown Patient Tobacco Use Status: Tobacco use Unknown Advance Directives: No Advance Directives Information Provided: Yes Do you have a plan to hurt others: No Plan Physical Exam Vital Signs: Vital Signs: Last Vital Signs Temp 98.4 F 10/01/24 02:36 Pulse 93 10/01/24 02:36 Resp 16 10/01/24 02:36 BP 125/78 10/01/24 02:36 Pulse Ox 92 10/01/24 02:36 O2 Del Method Room Air 10/01/24 02:36 BMI result Body Mass Index 19.6 Const: Other: Alert Orientation/consciousness: patient oriented x3 Resp: Effort & Inspection: normal respiratory effort Cardio: Other: Normal peripheral perfusion GI: Other: Soft nondistended nontender no guarding Back/Spine/Pelvis: Other: No CVA tenderness Skin: Other: Warm dry no rash Neuro: General: patient oriented x3, gait normal, no focal motor deficits and CN's II-XI intact bilaterally Psych: Other: Cooperative Medications Administered Discontinued Medications Generic Name Dose Route Start Last Admin Trade Name Freq PRN Reason Stop Dose Admin Cephalexin HCl 500 mg 10/01/24 01:02 10/01/24 01:35 Cephalexin 500 Mg Capsule PO 10/01/24 01:03 500 mg ONCE ONE Administration Phenazopyridine HCl 200 mg 10/01/24 01:02 10/01/24 01:35 Phenazopyridine Hcl 200 Mg Tablet PO 10/01/24 01:03 200 mg ONCE ONE Administration Medical Decision Making Medical Decision Making MDM Narrative: 38-year-old female presents with dysuria x2 weeks. Denies abdominal pain, nausea, vomiting, fever or back pain. No vaginal discharge. No risk for STD. No chronic issues History: Per patient I have considered the following differential diagnoses: Pyelonephritis, UTI, renal colic, pelvic pathology Plan: Patient has symptoms of urinary tract infection, she has no systemic symptoms or exam findings that would be concerning for pyelonephritis, she is not having flank pain to suggest renal colic, she has no vaginal discharge or risk for STD to suggest pelvic pathology, no indication for a pelvic exam. Screening labs and a urinalysis were obtained, she has a UTI. We will treat accordingly. I have independently reviewed the following tests: Labs: Slight leukocytosis, not anemic, no electrolyte abnormality, not , has a UTI. Lab Data 10/01/24 00:20 10/01/24 00:20 Labs: Lab Results 10/01/24 Range/Units 00:20 WBC 11.5 H (4.8-10.8) X10*3/uL RBC 3.15 L (4.20-5.50) X10*6/uL Hgb 10.9 L (12.0-16.0) g/dl Hct 32.8 L (37.0-47.0) % MCV 104.1 H (80.0-98.0) fL MCH 34.6 H (27.0-33.0) pg MCHC 33.2 (31.0-35.0) g/dl RDW 13.7 (11.0-16.0) % Plt Count 287 (160-400) X10*3/uL MPV 9.2 L (9.4-12.3) fL Immature Gran % (Auto) 1.2 H (0.0-0.4) % Neut % (Auto) 76.2 H (45-73) % Lymph % (Auto) 16.1 L (20-40) % [place] % (Auto) 5.5 (2-11) % Eos % (Auto) 0.7 (0-4) % Baso % (Auto) 0.3 (0-2) % Lymph # (Auto) 1.9 (1.2-4.9) X10*3/uL [place] # (Auto) 0.6 (0.1-1.2) X10*3/uL Eos # (Auto) 0.1 (0.0-0.4) X10*3/uL Baso # (Auto) 0.0 (0.0-0.2) X10*3/uL Abs Immat Gran (auto) 0.14 H (0.00-0.03) X10*3/uL Absolute Neuts (auto) 8.8 H (2.0-8.3) x10*3/uL Absolute Nucleated RBC 0.000 (0.0-0.012) X10*3/uL Nucleated RBC % (auto) 0.0 (0.0-0.2) /100WBC Sodium 140 (135-145) mmol/L Potassium 4.3 (3.3-5.1) mmol/L Chloride 113 H (96-108) mmol/L Carbon Dioxide 18 L (22-29) mmol/L Anion Gap 13 (12-20) BUN 24 H (9-16) mg/dL Creatinine 1.07 (0.5-1.4) mg/dL Estim Creat Clear Calc 48.1 Estimated GFR 57 Random Glucose 91 (60-115) mg/dL Calcium 8.7 (8.4-10.2) mg/dL Urine Color RED Urine Appearance Hazy Urine pH 6.5 (5.0-9.0) Ur Specific [place] 1.020 (1.005-1.025) Urine Protein 300 (3+) H (Neg-Trace) mg/dL Urine Glucose (UA) 250 H (Negative) mg/dL Urine Ketones Trace (Negative) mg/dL Urine Blood Small (1+) H (Negative) Urine Nitrite Positive H (Negative) Ur Leukocyte Esterase Small (1+) H (Negative) Urine RBC 3-5 H (0-2) /HPF Urine WBC 6-10 H (0-5) /HPF Urine WBC Clumps None seen Ur Squamous Epith Cells 6-10 (0-2) /HPF Urine Bacteria 4+ (None Seen) Hyaline Casts 0-2 (0-2) /LPF Urine Test NEGATIVE (NEGATIVE) Discharge Plan Discharge Clinical Impression: Urinary tract infection Patient Disposition: Home, Self-Care Instructions: Urinary Tract Infection in Women (ED) Additional Instructions: You were found to have a urinary tract infection. See home care instructions. Take the cephalexin as directed. If you develop evidence of a vaginal yeast infection take the Diflucan. Use the Pyridium as needed for urinary pain. Follow up with your primary care provider as needed Prescriptions: New cephalexin 500 mg capsule 500 mg PO BID Qty: 13 0RF phenazopyridine [Pyridium] 200 mg tablet 200 mg PO TID PRN (Reason: pain) Qty: 10 0RF fluconazole [Diflucan] 200 mg tablet 200 mg PO DAILY Qty: 1 0RF No Action buprenorphine-naloxone [Suboxone] 8-2 mg film 1 strip sublingual DAILY Orajel 3X Mouth Sores 20-0.1-0.15 % gel 1 ea mucous membrane TID PRN (Reason: pain) Qty: 5.1 0RF Rx Instructions: apply a small amount to affected area TID PRN pain nitrofurantoin monohyd/m-cryst [Macrobid] 100 mg capsule 100 mg PO Q12H 5 Days Qty: 10 0RF Rx Instructions: must administer with a meal/food phenazopyridine [Pyridium] 200 mg tablet 200 mg PO TID PRN (Reason: pain) Qty: 6 0RF cefdinir 300 mg capsule 300 mg PO BID 5 Days Qty: 10 0RF ibuprofen 400 mg tablet 400 mg PO Q6H PRN (Reason: fever or pain) Qty: 14 0RF acetaminophen [Tylenol Extra Strength] 500 mg tablet 500 mg PO Q6H PRN (Reason: fever or pain) Qty: 14 0RF Stand Alone Forms: Work/School Release Interventions: ED Discharge Assessment Last Done: 10/01/24 02:36 Discharge Date/Time: 10/01/24 02:38 Print Language: Luxembourgish
--- NOTE | 2024-10-01 02:35 | PC.NURSE ---
Reviewed discharge instructions with pt. pt verbalized understanding, no sign of distress.
[2024-10-01 02:36] VITALS: BP 125/78; PULSE 93; RESP 16; TEMP 36.9; O2SAT 92
== END 2024-10-01 02:38 | disposition home or self-care (01) ==
PROVIDERS: Emergency Provider Emergency Medicine
DX: N39.0 Urinary tract infection, site not specified (principal); R30.0 Dysuria; Z79.899 Other long term (current) drug therapy
CPT/HCPCS: 36415; 80048; 81001; 81025; 85025; 87086; 87088; 87186; 99283; 99284

== ENCOUNTER 2024-12-18 07:11 | Emergency (ER) | payer SELFPAY ==
[2024-12-18 07:18] VITALS: BP 108/71; PULSE 83; RESP 18; TEMP 37; O2SAT 97; BMI 19.6
[2024-12-18 07:38] LABS: MANUAL DIFF FLAG NO
[2024-12-18 07:40] LABS: Basophils Percent Auto 0.2 % (0-2); Eosinophils Absolute Auto 0.1 X10*3/uL (0.0-0.4); Hematocrit 32.4 % (37.0-47.0); Hemoglobin 10.7 g/dl (12.0-16.0); Imm Gran Abs Auto 0.01 X10*3/uL (0.00-0.03); Imm Gran Pct Auto 0.2 % (0.0-0.4); Lymphocytes Absolute Auto 2.2 X10*3/uL (1.2-4.9); Lymphocytes Percent Auto 45.6 % (20-40); Mean Corpuscular Hemoglobin 34.4 pg (27.0-33.0); Mean Corpuscular Volume 104.2 fL (80.0-98.0); Mean Platelet Volume 9.1 fL (9.4-12.3); Monocytes Absolute Auto 0.4 X10*3/uL (0.1-1.2); Monocytes Percent Auto 7.6 % (2-11); Neutrophils Absolute Auto 2.2 x10*3/uL (2.0-8.3); Neutrophils Percent Auto 45.4 % (45-73); Platelet Count 230 X10*3/uL (160-400); Red Blood Count 3.11 X10*6/uL (4.20-5.50); Red Cell Distribution Width 11.7 % (11.0-16.0); White Blood Count 4.9 X10*3/uL (4.8-10.8)
[2024-12-18 07:43] LABS: Appearance Urine Clear; Color Urine Orange; Leukocyte Esterase Urine Moderate (2+) (Negative); Specific Gravity - Urine 1.025 (1.005-1.025); UMIC TRIGGER UACC YES
[2024-12-18 07:53] LABS: Anion Gap 15 (12-20); Blood Urea Nitrogen 23 mg/dL (9-16); Calcium 8.7 mg/dL (8.4-10.2); Carbon Dioxide 23 mmol/L (22-29); Chloride 109 mmol/L (96-108); Creatinine Clr Calc Pharmacy 80.9; Estimated Glomerular Filt Rate > 60; Glucose Random 87 mg/dL (60-115); Potassium 4.5 mmol/L (3.3-5.1); Sodium 142 mmol/L (135-145); Urine Blood Small (1+) (Negative)
[2024-12-18 07:55] LABS: Bacteria Urine 1+ (None Seen); UACC Culture Trigger YES; WBC Urine 21-50 /HPF (0-5)
[2024-12-18 07:56] LABS: Hyaline Casts Urine 0-2 /LPF (0-2)
--- NOTE | 2024-12-18 08:17 | ED.FEMALEGU ---
HPI - Female Genitourinary General Chief complaint: Urogenital-Female Stated complaint: UTI? Time Seen by Provider: 12/18/24 08:02 Source: patient Mode of arrival: ambulatory Limitations: no limitations History of Present Illness ED Provider: JONEL ELLIOTT PA-C HPI Narrative: 39-year-old female presents to the ED today for evaluation of dysuria x3 days. Reports history of recurrent UTIs. States this feels similar. States her last UTI was in August of this year. Denies any fever, chills, nausea or vomiting, abdominal pain or flank pain, hematuria, diarrhea or constipation, vaginal discharge. Denies any other concerns at present. Related Data Home Medications ?Medication ?Instructions ?Recorded ?Confirmed buprenorphine 8 mg-naloxone 2 mg 1 strip sublingual DAILY 06/01/21 06/01/21 sublingual film (Suboxone) Previous Rx's ?Medication ?Instructions ?Recorded benzocaine 20 %-menthol 0.1 %-zinc 1 ea mucous membrane TID PRN pain 06/01/21 chloride 0.15 % mucosal gel #5.1 grams (Orajel 3X Mouth Sores) nitrofurantoin 100 mg PO Q12H 5 days #10 caps 12/30/22 monohydrate/macrocrystals 100 mg capsule (Macrobid) phenazopyridine 200 mg tablet 200 mg PO TID PRN pain 6 doses #6 12/30/22 (Pyridium) tabs acetaminophen 500 mg tablet 500 mg PO Q6H PRN fever or pain 08/08/24 (Tylenol Extra Strength) #14 tabs cefdinir 300 mg capsule 300 mg PO BID 5 days #10 caps 08/08/24 ibuprofen 400 mg tablet 400 mg PO Q6H PRN fever or pain 08/08/24 #14 tabs cephalexin 500 mg capsule 500 mg PO BID #13 caps 10/01/24 fluconazole 200 mg tablet 200 mg PO DAILY #1 tab 10/01/24 (Diflucan) phenazopyridine 200 mg tablet 200 mg PO TID PRN pain #10 tabs 10/01/24 (Pyridium) nitrofurantoin 100 mg PO BID 7 days #14 caps 12/18/24 monohydrate/macrocrystals 100 mg capsule phenazopyridine 100 mg tablet 100 mg PO TID PRN pain (scale 12/18/24 (Pyridium) score 4-6) #10 tabs Allergies Allergy/AdvReac Type Severity Reaction Status Date / Time amoxicillin [Amoxicillin] Allergy Unknown RASH Verified 12/18/24 07:22 Review of Systems Review of Systems: Yes all other systems are reviewed and are negative [facility] Past Medical History Attestation statement: The following information was validated with the patient. Source: old records reviewed and nursing notes reviewed Medical History Opiate addiction No known health problems Social History Social History Alcohol intake: unknown Patient Tobacco Use Status: Tobacco use Unknown Physical Exam Vital Signs: Vital Signs: Last Vital Signs Temp 98.6 F 12/18/24 07:18 Pulse 83 12/18/24 07:18 Resp 18 12/18/24 07:18 BP 108/71 12/18/24 07:18 Pulse Ox 97 12/18/24 07:18 O2 Del Method Room Air 12/18/24 07:18 BMI result Body Mass Index 19.6 Vital signs stable, afebrile General: Well appearing, in no acute distress. Skin: Warm, dry, intact. No rashes or lesions. Head: Normocephalic, atraumatic. EENT: Hearing is intact b/l. Conjunctiva clear. PERRLA. EOM intact. Moist mucous membranes.? Cardiac: Chest wall symmetric Lungs: Normal respiratory effort without accessory muscle use. CTA bilaterally. Abdomen: Soft, non-tender, non-distended. No rebound tenderness or guarding. Positive BS x4. no cvat b/l. Back: No midline spinous or paraspinal tenderness. No step off deformity. Ext: Upper and lower extremities atraumatic, without tenderness, deformity, swelling or erythema Neuro: AOx3. Normal speech. Ambulating with steady gait Course Course Course Narrative: CBC without leukocytosis or left shift. Macrocytic anemia, chronic when compared to priors. H&H stable and above transfusion threshold. Chemistry without acute electrolyte abnormality requiring intervention. BUN slightly elevated at 23 with normal creatinine. I have encouraged oral hydration. Will treat UTI. Previous urine cultures grew >100k ecoli, pansensitive. Macrobid sent to pharmacy for treatment. She was given her first dose in ED today. Patient has remained stable throughout ED visit today. Discussed worrisome signs and symptoms and when to return to the ED. All questions answered at this time. Patient is agreeable with disposition and stable for discharge. Medical Decision Making Medical Decision Making [facility] Narrative: 39-year-old female presents to the ED today for evaluation of dysuria x3 days. Vital signs stable, afebrile. She is nontoxic-appearing and in no acute distress. Exam is quite benign. Her abdomen is soft, nondistended, nontender to palpation. No rebound tenderness or guarding. There is no CVAT bilaterally. Active bowel sounds throughout. Differential diagnosis includes UTI. Lower suspicion for renal colic, nephrolithiasis, hydronephrosis, pyelonephritis. Screening labs and urinalysis obtained from triage. Plan to review and re-evaluate. Differential Diagnosis Differential Diagnoses: The differential diagnosis associated with the presentation includes as above. Admission/Observation not indicated. Lab Data [facility] Lab Attestation statement: I reviewed the patient's lab results. As above 12/18/24 07:34 12/18/24 07:34 Labs: Lab Results 12/18/24 Range/Units 07:34 WBC 4.9 (4.8-10.8) X10*3/uL RBC 3.11 L (4.20-5.50) X10*6/uL Hgb 10.7 L (12.0-16.0) g/dl Hct 32.4 L (37.0-47.0) % MCV 104.2 H (80.0-98.0) fL MCH 34.4 H (27.0-33.0) pg MCHC 33.0 (31.0-35.0) g/dl RDW 11.7 (11.0-16.0) % Plt Count 230 (160-400) X10*3/uL MPV 9.1 L (9.4-12.3) fL Immature Gran % (Auto) 0.2 (0.0-0.4) % Neut % (Auto) 45.4 (45-73) % Lymph % (Auto) 45.6 H (20-40) % [place] % (Auto) 7.6 (2-11) % Eos % (Auto) 1.0 (0-4) % Baso % (Auto) 0.2 (0-2) % Lymph # (Auto) 2.2 (1.2-4.9) X10*3/uL [place] # (Auto) 0.4 (0.1-1.2) X10*3/uL Eos # (Auto) 0.1 (0.0-0.4) X10*3/uL Baso # (Auto) 0.0 (0.0-0.2) X10*3/uL Abs Immat Gran (auto) 0.01 (0.00-0.03) X10*3/uL Absolute Neuts (auto) 2.2 (2.0-8.3) x10*3/uL Absolute Nucleated RBC 0.000 (0.0-0.012) X10*3/uL Nucleated RBC % (auto) 0.0 (0.0-0.2) /100WBC Sodium 142 (135-145) mmol/L Potassium 4.5 (3.3-5.1) mmol/L Chloride 109 H (96-108) mmol/L Carbon Dioxide 23 (22-29) mmol/L Anion Gap 15 (12-20) BUN 23 H (9-16) mg/dL Creatinine 0.63 (0.5-1.4) mg/dL Estim Creat Clear Calc 80.9 Estimated GFR > 60 Random Glucose 87 (60-115) mg/dL Calcium 8.7 (8.4-10.2) mg/dL Urine Color [place] Urine Appearance Clear Urine pH 5.0 (5.0-9.0) Ur Specific [place] 1.025 (1.005-1.025) Urine Protein See Note (Neg-Trace) mg/dL Urine Glucose (UA) See Note (Negative) mg/dL Urine Ketones See Note (Negative) mg/dL Urine Blood Small (1+) H (Negative) Urine Nitrite See Note (Negative) Ur Leukocyte Esterase Moderate (2+) H (Negative) Urine RBC 6-10 H (0-2) /HPF Urine WBC 21-50 H (0-5) /HPF Ur Squamous Epith Cells 11-20 (0-2) /HPF Urine Bacteria 1+ (None Seen) Hyaline Casts 0-2 (0-2) /LPF External Record Review External record reviewed: Inpatient record Prescription Management I considered prescription management with: Pain Medication (Pyridium) and Antibiotic (Nitrofurantoin) Chronic Conditions Patient?s care impacted by: Other (Recurrent UTIs) Social Determinants Patient?s care significantly limited by Social Determinants of Health including: Other Social Determinant of Health Critical Care Time Critical Care Time Critical Care Time: No Discharge Plan Discharge Clinical Impression: Urinary tract infection Patient Disposition: Home, Self-Care Instructions: Urinary Tract Infection in Women (DC) Additional Instructions: Your urine today is positive for infection. Please make sure you are staying adequately hydrated. Nitrofurantoin is an antibiotic that has been sent to your pharmacy. Take this as prescribed and do not miss any doses. You must complete the entire course of antibiotics. If you do not, there is a risk of the infection coming back or worsening. Pyridium is an analgesic that can relieve the pain, burning, and discomfort caused by infection or irritation of the urinary tract. It is not an antibiotic and will not cure the infection itself. This has been sent to your pharmacy. Take this as needed for discomfort. Pyridium can cause your urine to turn a reddish orange color.? Follow up with your primary care provider as needed. If you develop a fever or new/ worsening symptoms call 911 or come back to the ER for further evaluation. Prescriptions: New nitrofurantoin monohyd/m-cryst 100 mg capsule 100 mg PO BID 7 Days Qty: 14 0RF Rx Instructions: must administer with a meal/food phenazopyridine [Pyridium] 100 mg tablet 100 mg PO TID PRN (Reason: pain (scale score 4-6)) Qty: 10 0RF No Action buprenorphine-naloxone [Suboxone] 8-2 mg film 1 strip sublingual DAILY Orajel 3X Mouth Sores 20-0.1-0.15 % gel 1 ea mucous membrane TID PRN (Reason: pain) Qty: 5.1 0RF Rx Instructions: apply a small amount to affected area TID PRN pain nitrofurantoin monohyd/m-cryst [Macrobid] 100 mg capsule 100 mg PO Q12H 5 Days Qty: 10 0RF Rx Instructions: must administer with a meal/food phenazopyridine [Pyridium] 200 mg tablet 200 mg PO TID PRN (Reason: pain) Qty: 6 0RF cefdinir 300 mg capsule 300 mg PO BID 5 Days Qty: 10 0RF ibuprofen 400 mg tablet 400 mg PO Q6H PRN (Reason: fever or pain) Qty: 14 0RF acetaminophen [Tylenol Extra Strength] 500 mg tablet 500 mg PO Q6H PRN (Reason: fever or pain) Qty: 14 0RF cephalexin 500 mg capsule 500 mg PO BID Qty: 13 0RF phenazopyridine [Pyridium] 200 mg tablet 200 mg PO TID PRN (Reason: pain) Qty: 10 0RF fluconazole [Diflucan] 200 mg tablet 200 mg PO DAILY Qty: 1 0RF Referrals: ED Physician,Generic [Emergency Provider] - Print Language: Bulgarian
[2024-12-18] MEDS: Nitrofurantoin Monohyd/M-Cryst 100 MG CAPSULE PO (08:42)
[2024-12-18 08:45] VITALS: BP 108/71; PULSE 83; RESP 18; TEMP 37; O2SAT 97
== END 2024-12-18 08:45 | disposition home or self-care (01) ==
PROVIDERS: Emergency Provider Emergency Medicine Emergency Medical Services
DX: N39.0 Urinary tract infection, site not specified (principal); R30.0 Dysuria
CPT/HCPCS: 36415; 80048; 81001; 85025; 87086; 87088; 87186; 99283; 99284